=== PATIENT | female | born 1960 | race Caucasian/White ===

== ENCOUNTER → 2022-06-13 06:55 | Outpatient (CLI) | payer OTHER, BC, SELFPAY ==
--- NOTE | ~2022-06-13 | MR_ITS ---
EXAMINATION: MR knee RT wo con DATE: 06/13/2022 07:37 INDICATION: Right knee pain TECHNIQUE: Magnetic resonance imaging (MRI) of the right knee was performed without intravenous contr ast. Sequences included coronal PD-weighted FSE, coronal PD-weighted FS FSE, sagittal T2-weighted FS E, sagittal PD-weighted FS FSE and axial PD weighted fat saturated FSE. COMPARISON: None. FINDINGS: Medial compartment: Complex tear involving the body and posterior horn of the medial meniscus. There is subluxation of a small meniscal flap into the inferior gutter along the medial aspect of the medial tibial plateau. Th ere is extensive deep chondral ulceration along the anterior to central weightbearing medial femoral condyle in places likely full/near full-thickness with underlying subarticular edema-like signal schrader ge and mild eburnation at the anterior weightbearing medial femoral condyle. Additional less severe p artial thickness cartilage loss along the medial side of the medial tibial plateau with additional mi ld subarticular edema-like signal change along the medial rim. Lateral compartment: Lateral meniscus is normal. Articular cartilage is normal. Patellofemoral compartment: Partial-thickness chondral ulceration at the patellar apical ridge and adjacent lateral side of the m edial patellar facet. Chondral fissuring involving greater than 50% the cartilage thickness at the la teral facet. No degenerative subarticular changes. Chondral fissuring involving less than 50% the car tilage thickness and without degenerative subchondral changes along the trochlear groove. Ligaments and tendons: Anterior and posterior cruciate ligaments are normal. The medial collateral ligament and fibular jeni ateral ligament complex are normal. The extensor mechanism is normal. The visualized medial and later al hamstring tendons as well as the iliotibial band are normal. Fluid: Small to moderate-sized right knee joint effusion with mild synovitis at the suprapatellar pouch and along the posterior margin of Hoffa's fat pad. No loose osteochondral bodies identified. Moderate siz e Murray's cyst measuring 5.5 x 2.3 x 2.1 cm. Osseous/other: Normal marrow signal aside from a previous noted degenerative subarticular edema-like signal change a t the medial compartment. No fracture or pathologic marrow replacing process. IMPRESSION: 1. 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 2. 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 3. Small to moderate-sized right knee joint effusion and moderate-sized Murray's cyst. Reviewed, dictated and finalized at location A. IMPRESSION: 1. Complex medial meniscal tear and moderate osteoarthritis in the medial kemi rtment with regions of high-grade chondromalacia. 2. 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 3. Small to moderate-sized right knee joint effusion and moderate-sized Murray's cyst.
== END ==
PROVIDERS: PCP Family Medicine; Visit Provider Orthopaedic Surgery
DX: S83.231A Complex tear of medial meniscus, current injury, right knee, initial encounter (principal); X58.XXXA Exposure to other specified factors, initial encounter; M17.11 Unilateral primary osteoarthritis, right knee; M24.561 Contracture, right knee; M71.21 Synovial cyst of popliteal space [Baker], right knee
CPT/HCPCS: 73721